=== PATIENT | female | born 1985 | race Caucasian/White ===

== ENCOUNTER 2020-08-30 15:19 | Emergency (ER) | payer OTHER, SELFPAY ==
[2020-08-30 15:25] VITALS: BP 169/96; PULSE 98; RESP 20; TEMP 37.1; O2SAT 100
--- NOTE | 2020-08-30 15:27 | ED.NECK ---
HPI - Neck Pain/Injury General Chief Complaint: Neck Pain/Injury Stated Complaint: Neck pain, arm pain Time Seen by Provider: 08/30/20 15:40 Source: patient and RN notes reviewed Mode of arrival: ambulatory Limitations: no limitations History of Present Illness HPI Narrative: 35-year-old female presents with concern for neck pain that radiates to the right shoulder, bilateral intermittent arm tingling. She denies any weakness, chest pain, shortness of breath. Denies any neck injury, trauma denies any history of neck injury or trauma. Reports taking Tylenol with no relief. MD complaint: neck pain Related Data Home Medications Medication Instructions Recorded Confirmed famotidine 20 mg PO DAILY 08/30/20 08/30/20 hydroxyzine pamoate 25 mg PO TID PRN 08/30/20 08/30/20 Allergies Allergy/AdvReac Type Severity Reaction Status Date / Time No Known Allergies Allergy Unknown Unverified 05/23/18 11:38 Review of Systems Review of Systems: Narrative: CONSTITUTIONAL: Denies malaise, chills, sweats, or fever. CARDIOVASCULAR: Denies chest pain, palpitations, or edema. RESPIRATORY: Denies cough or dyspnea. GASTROINTESTINAL: Denies abdominal pain, nausea, vomiting, diarrhea SKIN: Denies bruising, swelling, redness, open skin MUSCULOSKELETAL: Reports neck pain that radiates to the left shoulder, bilateral arm tingling NEUROLOGIC: Denies numbness, weakness, or headache. All systems reviewed & are unremarkable except as noted in HPI and below PMFSH Comments At time of signature, agree with nursing past medical, surgical, social and family history. There is no relevant family history pertinent to the presenting complaint Exam Narrative: Exam Narrative: GENERAL: Well-appearing, well-nourished, and in no acute distress. HEAD: Normocephalic, atraumatic. EYES: PERRLA, conjunctivae clear, and EOMI. No nystagmus. ENT: Mucous membranes moist. NECK: Supple. No lymphadenopathy. No jugular venous distension, thyromegaly, or carotid bruits. Carotids were easily palpable bilaterally. No midline neck tenderness, no paraspinal tenderness CHEST: No respiratory distress. Clear to auscultation. No bony deformities, no asymmetry. Speaks in full sentences. HEART: Regular rate and rhythm. No murmur heard. Normal peripheral pulses. EXTREMITIES: Bilateral upper extremities have normal range of motion, no edema, normal strength and sensation. SKIN: Warm, dry, no rash. NEURO: Alert and oriented x3. No focal deficits PSYCH: Normal mood and affect Course Course Emergency Course: Patient is aware of diagnosis, understands and agrees to treatment plan. Anticipatory guidance given. Patient agrees to follow-up as directed and is aware of reasons to seek care at the emergency department. Portions of this record may have been created with voice recognition software Vital Signs Vital signs: Vital Signs Temperature 98.8 F 08/30/20 15:25 Pulse Rate 98 08/30/20 15:25 Respiratory Rate 20 08/30/20 15:25 Blood Pressure 169/96 H 08/30/20 15:25 Pulse Oximetry 100 08/30/20 15:25 Temperature 98.8 F 08/30/20 15:48 Pulse Rate 98 08/30/20 15:48 Respiratory Rate 20 08/30/20 15:48 Blood Pressure 169/96 H 08/30/20 15:48 Pulse Oximetry 100 08/30/20 15:48 Reviewed. MDM - Neck Pain/Injury MDM Narrative Medical decision making narrative: Patients injury and pain is consistent with musculoskeletal etiology. No signs of neurological or vascular compromise on exam. Compartments and tissues are soft without signs of compartment syndrome. Pain is felt appropriate for further evaluation on an outpatient basis. ECG Data EKG #1: ECG completion date: 08/30/20 ECG completion time: 15:46 Prior ECG tracings: not available for review Interpretation: Rate 97, AR #132, QRS duration 93, QT 349, QTc 403, sinus rhythm, nonspecific T wave abnormality EKG Interpretation: normal rate, sinus rhythm and no ectopy Critical Care [facility]
[2020-08-30 15:30] VITALS: BP 149/89
--- NOTE | 2020-08-30 15:38 | ECG_ITS ---
Measurements Intervals [place] Rate: 97 P: 52 VA: 132 QRS: 28 QRSD: 93 T: 18 QT: 349 QTc: 443 Interpretive Statements SINUS RHYTHM NONSPECIFIC T-WAVE ABNORMALITY- INFERIOR LEADS BORDERLINE ECG Electronically Signed On 08-30-2020 18:58:19 CDT by Joe Villalba D.O.
[2020-08-30 15:48] VITALS: BP 169/96; PULSE 98; RESP 20; TEMP 37.1; O2SAT 100
== END 2020-08-30 16:00 | disposition home or self-care (01) ==
PROVIDERS: Emergency Provider Nurse Practitioner; PCP Family Medicine
DX: S16.1XXA Strain of muscle, fascia and tendon at neck level, initial encounter (principal); X58.XXXA Exposure to other specified factors, initial encounter; K21.9 Gastro-esophageal reflux disease without esophagitis; F41.9 Anxiety disorder, unspecified
CPT/HCPCS: 93005; 99213; G0463

== ENCOUNTER 2021-07-26 14:01 | Emergency (ER) | payer OTHER, SELFPAY ==
[2021-07-26 14:23] VITALS: BP 131/94; PULSE 100; RESP 18; TEMP 37; O2SAT 99
--- NOTE | 2021-07-26 14:57 | ED.GENADULT ---
HPI - General Adult General Chief complaint: Upper Respiratory Infection Stated complaint: cough sinus drainage Source: patient Mode of arrival: ambulatory Limitations: no limitations History of Present Illness HPI narrative: Pt presents for evaluation of respiratory symptoms. She states she has experienced nasal congestion with clear rhinorrhea for the past three days. She further endorses some chest congestion. No significant cough. No fever, chills, nausea, vomiting, diarrhea, shortness of breath. She has taken sudafed which has really helped with her symptoms. Her left ear feels sore . She states her throat is irritated from coughing. She denies sore throat otherwise. She does not smoke. No recent sick contacts. Her daughter is being evaluated here for respiratory symptoms. She did have COVID in May of this year. She takes loratidine for allergies. She thinks her symptoms are actually improving. Related Data Home Medications Medication Instructions Recorded Confirmed famotidine 20 mg PO DAILY 08/30/20 08/30/20 buspirone mg 07/26/21 loratadine mg 07/26/21 07/26/21 losartan 07/26/21 Allergies Allergy/AdvReac Type Severity Reaction Status Date / Time No Known Allergies Allergy Unknown Verified 07/26/21 15:00 Review of Systems Review of Systems: CONSTITUTIONAL: Denies fever, chills, or sweats. EYES: Denies visual changes, redness, or discharge. ENT: Reports sinus congestion with clear rhinorrhea. Reports mild left sided otalgia. CARDIOVASCULAR: Denies chest pain, palpitations, or edema. RESPIRATORY:Reports chest congestion. Denies cough or dyspnea. GASTROINTESTINAL: Denies abdominal pain, nausea, vomiting, or diarrhea. GENITOURINARY: Denies dysuria or hematuria. SKIN: Denies rash or itching. MUSCULOSKELETAL: Denies back pain, joint pain, or myalgia. NEUROLOGIC: Denies headache, numbness, dizziness, or weakness. PSYCHIATRIC: Denies anxiety or depression. [facility] Past Medical History Medical History Allergic rhinitis Surgical History Surgical History History of section History of tubal ligation Family History Family History Mother Diabetes mellitus Hypertension Father Hypertension Social History Social History (Updated 07/26/21 @ 15:03 by GAUDENCIO Hay, ) Smoking status: Never smoker Alcohol intake: never Substance use: never Living arrangements: with family Gender identity (if verbalized by the patient): Female Sexual Orientation (if Verbalized by the Patient): Straight or Heterosexual Spiritual care concerns: No Exam Narrative: GENERAL: Well-appearing, well-nourished, and in no acute distress. HEAD: Normocephalic, atraumatic. EYES: PERRLA and EOMI. ENT: Nares clear, no rhinorrhea or epistaxis. Mucous membranes moist. Oropharynx without tonsillar hypertrophy exudate or other lesions. Bilateral TMs pearly galvan nonbulging NECK: Supple. No adenopathy or masses. No carotid bruits or JVD CHEST: Clear to auscultation. No respiratory distress. No wheezes rales or rhonchi HEART: Regular rate and rhythm. No murmur heard. Normal peripheral pulses. ABDOMEN: Soft, nontender, nondistended, normal active bowel sounds. EXTREMITIES: Normal range of motion. No edema. SKIN: Warm, dry, no rash. NEURO: No focal deficits. Alert and oriented x3. PSYCH: Normal mood and affect. Course Course Emergency Course: This is a 36-year-old female who presented with complaints of respiratory symptoms. Strep test was declined by patient. Influenza was negative. She recently had Covid so this was not repeated. She does not have a cough warranting chest. Likely acute viral illness. Advised on need to increase hydration and take OTC meds for symptom control. F/U outpatient for further evaluatio
== END 2021-07-26 15:10 | disposition home or self-care (01) ==
PROVIDERS: Emergency Provider Nurse Practitioner; PCP Family Medicine
DX: J06.9 Acute upper respiratory infection, unspecified (principal); Z86.16 Personal history of COVID-19
CPT/HCPCS: 87804; 99213; G0463

== ENCOUNTER 2021-10-12 16:28 | Emergency (ER) | payer OTHER, SELFPAY ==
[2021-10-12 16:36] VITALS: BP 144/83; PULSE 84; RESP 12; TEMP 37.1; O2SAT 100
--- NOTE | 2021-10-12 16:39 | ED.URI ---
HPI - URI/Sore Throat General Chief Complaint: Ear Stated Complaint: headache,ear pain Time Seen by Provider: 10/12/21 16:40 Source: patient and RN notes reviewed History of Present Illness HPI Narrative: Patient is a 36-year-old female who presents the urgent care with complaints of a headache and bilateral ear pain that started yesterday. Patient states the headache is been approximately 4 days but she does get headaches off and on. Patient states they have been much better since being treated for her hypertension. Patient has been taking Excedrin and Tylenol. No other complaints. No acute distress noted. Patient aware of the plan of care. Some parts of this dictation were generated by voice recognition software and may contain typographical and/or grammatical inaccuracies. Related Data Home Medications Medication Instructions Recorded Confirmed famotidine 20 mg tablet 20 mg PO DAILY 08/30/20 10/12/21 buspirone 5 mg tablet 5 mg PO DAILY 07/26/21 10/12/21 loratadine 10 mg tablet 10 mg PO DAILY 07/26/21 10/12/21 losartan 25 mg tablet 25 mg PO DAILY 07/26/21 10/12/21 Allergies Allergy/AdvReac Type Severity Reaction Status Date / Time No Known Allergies Allergy Unknown Verified 10/12/21 16:41 Review of Systems Review of Systems: CONSTITUTIONAL: Denies fever, chills, or sweats. EYES: Denies visual changes, redness, or discharge. ENT: Reports of bilateral otalgia CARDIOVASCULAR: Denies chest pain, palpitations, or edema. RESPIRATORY: Denies cough or dyspnea. GASTROINTESTINAL: Denies abdominal pain, nausea, vomiting, or diarrhea. GENITOURINARY: Denies dysuria or hematuria. SKIN: Denies rash or itching. MUSCULOSKELETAL: Denies back pain, joint pain, or myalgia. NEUROLOGIC: Reports of intermittent headaches All other systems reviewed are negative, except as documented in HPI. REPLACED BY [facility] Past Medical History Medical History Allergic rhinitis Surgical History Surgical History History of section History of tubal ligation Family History Family History Mother Diabetes mellitus Hypertension Father Hypertension Social History Social History (Updated 07/26/21 @ 15:03 by Henry Martin, [employer], ) Smoking status: Never smoker Alcohol intake: never Substance use: never Gender identity (if verbalized by the patient): Female Sexual Orientation (if Verbalized by the Patient): Straight or Heterosexual Spiritual care concerns: No Comments At the time of my signature, I reviewed and agree with the nursing past medical, surgical, social, and family history. There is no relevant family history pertinent to the patient complaint. Exam Narrative: GENERAL: This is a well-nourished, well-developed patient, in no apparent distress. HEAD: normocephalic, atraumatic. EYES: PERRL. Sclera clear/white. Vision is grossly intact. EARS: External ears normal, mild edema and moderate erythema noted to the right auditory canal without drainage. Unable to visualize bilateral TMs due to cerumen impaction. Hearing grossly intact. NOSE: External nose normal with no obvious nasal discharge, nares without redness, no rhinorrhea. THROAT: Mucous membranes moist, posterior pharynx clear. Mild postnasal drainage with mild right tonsillar edema without exudate NECK: Neck supple, non-tender without lymphadenopathy CARDIOVASCULAR: Regular rate and rhythm without murmurs, gallops, or rubs. RESPIRATORY: Clear to auscultation. Breath sounds equal bilaterally. No wheezes, rales, or rhonchi. SKIN: warm, intact with no suspicious lesions or rash, good texture and turgor. NEURO: awake, alert, and oriented to person, place and time. There were no obvious focal neurologic abnormalities. EXTREMITIES: No clubbing, cyanosis, or edema. Course Course Level of Ca
== END 2021-10-12 17:00 | disposition home or self-care (01) ==
PROVIDERS: Emergency Provider Nurse Practitioner Family; PCP Family Medicine
DX: H60.501 Unspecified acute noninfective otitis externa, right ear (principal); H66.92 Otitis media, unspecified, left ear; H61.23 Impacted cerumen, bilateral
CPT/HCPCS: 69210; 99213; G0463